=== PATIENT | female | born 1990 | race Caucasian/White ===

== ENCOUNTER 2016-07-19 07:32 | Emergency (ER) | payer SELFPAY ==
[~2016-07-19] VITALS: Ht 157.5 cm; Wt 96.0 kg
[2016-07-19] MEDS ORDERED: CHOL100046 PO (07:44)
[2016-07-19] MEDS ORDERED: GABA-529 PO (07:44)
[2016-07-19] MEDS ORDERED: SODIUM CHLORIDE 0.9% 1,000 ML IV ONE (08:41)
[2016-07-19] MEDS ORDERED: KETOROLAC 30MG/ML VIAL IV ONE ×2 (08:45→11:30)
[2016-07-19 09:31] LABS: BASOPHILS % 0.5 % (0.0-2.0); EOSINOPHILS % 0.7 % (0.0-5.0); HEMATOCRIT. 39.4 % (36.0-48.0); MEAN CORPUSCULAR HEMOGLOBIN 29.2 pg (28.0-32.0); MEAN CORPUSCULAR HGB CONC 33.1 g/dL (31.0-37.0); MEAN CORPUSCULAR VOLUME 88.2 fL (81.0-99.0); MONOCYTES % 4.6 % (2.0-8.0); NEUTROPHILS % 63.2 % (40.0-76.0); PLATELET 291 x1000/uL (130-400); RED BLOOD CELL COUNT 4.47 mill/uL (4.2-5.4); RED CELL DISTRIBUTION WIDTH 13.7 % (11.6-14.6); WHITE BLOOD COUNT 7.3 x1000/uL (4.5-11.0)
[2016-07-19 09:37] LABS: CHLORIDE 108 mEq/L (98-107); INDEX HEMOLYSI 1 (1-3); INDEX ICTERIC 1 (1-4); INDEX LIPEMIC 1 (1-3)
[2016-07-19 09:42] LABS: HCG SCREEN NEGATIVE
[2016-07-19 09:45] LABS: ALANINE AMINOTRANSFERASE 31 IU/L (13-61); ALBUMIN 3.5 g/dL (3.4-5.0); ANION GAP 11; CALCIUM 9.1 mg/dL (8.5-10.1); CARBON DIOXIDE 31 mEq/L (21-32); UREA NITROGEN BLOOD 13 mg/dL (7-21); eGFR > 60 mL/min (>60)
[2016-07-19 10:00] VITALS: BP 117/74
== END 2016-07-19 12:10 | disposition home or self-care (01) ==
LOC: ER 08:54
DX: M54.2 Cervicalgia (principal); R19.7 Diarrhea, unspecified; E86.0 Dehydration; G35 Multiple sclerosis; Z88.0 Allergy status to penicillin; E87.0 Hyperosmolality and hypernatremia
CPT/HCPCS: 36415; 80053; 84703; 85025; 96361; 96374; 99284; J1885; J7030; Z7610

== ENCOUNTER 2016-09-26 13:36 | Emergency (ER) | payer SELFPAY ==
[~2016-09-26] VITALS: Ht 157.5 cm; Wt 86.0 kg
[~2016-09-26 13:36] MED LIST: CHOL100046 PO; GABA-529 PO
[2016-09-26 13:41] VITALS: BP 102/81
== END 2016-09-26 17:43 | disposition left against medical advice (07) ==
LOC: ER 17:30
DX: Z53.21 Procedure and treatment not carried out due to patient leaving prior to being seen by health care provider (principal)

== ENCOUNTER 2016-10-05 12:05 | Emergency (ER) | payer SELFPAY ==
[~2016-10-05] VITALS: Ht 160 cm; Wt 84.0 kg
[2016-10-05] MEDS ORDERED: ONDANSETRON HCL 4MG/2ML VIAL IV STA (15:36)
[2016-10-05] MEDS ORDERED: MORPHINE SULFATE 4 MG/ML CPJ (NOT FOR IM USE) IV STA (15:36)
[2016-10-05] MEDS ORDERED: SODIUM CHLORIDE 0.9% 1,000 ML IV ONE (15:36)
[2016-10-05 15:57] LABS: BASOPHILS % 0.4 % (0.0-2.0); EOSINOPHILS % 3.1 % (0.0-5.0); HEMATOCRIT. 37.3 % (36.0-48.0); HEMOGLOBIN. 12.7 g/dL (12.0-16.0); LYMPHOCYTES % 35.3 % (20.0-50.0); MEAN CORPUSCULAR HEMOGLOBIN 29.5 pg (28.0-32.0); MEAN CORPUSCULAR VOLUME 86.8 fL (81.0-99.0); MEAN PLATELET VOLUME 7.1 fl (7.4-10.4); MONOCYTES % 5.8 % (2.0-8.0); NEUTROPHILS % 55.4 % (40.0-76.0); PLATELET 264 x1000/uL (130-400); RED CELL DISTRIBUTION WIDTH 13.8 % (11.6-14.6)
[2016-10-05 16:02] LABS: PROTHROMBIN TIME 10.1 sec
[2016-10-05 16:09] LABS: CARBON DIOXIDE 26 mEq/L (21-32); CHLORIDE 110 mEq/L (98-107)
[2016-10-05 16:11] LABS: HCG SCREEN NEGATIVE
[2016-10-05 16:51] LABS: CLARITY URINE CLOUDY (CLEAR); COLOR URINE YELLOW (YELLOW); GLUCOSE URINE NEGATIVE (NEGATIVE); KETONES URINE NEGATIVE (NEGATIVE); LEUKOCYTE ESTERASE URINE 1+ (NEGATIVE); NITRITE URINE NEGATIVE (NEGATIVE); OCCULT BLOOD URINE NEGATIVE (NEGATIVE); PROTEIN URINE TRACE (NEGATIVE); SPECIFIC GRAVITY URINE 1.031 (1.005-1.030)
[2016-10-05] MEDS ORDERED: KETOROLAC 30MG/ML VIAL IV ONE (19:15)
[2016-10-05] MEDS ORDERED: CEFTRIAXONE SODIUM 250 MG/VIAL IM ONE (19:45)
[2016-10-05] MEDS ORDERED: AZITHROMYCIN 500 MG TABLET PO ONE (20:15)
[2016-10-05] MEDS ORDERED: CEFTRIAXONE SODIUM 250 MG/VIAL IV ONE (20:30)
[2016-10-05] MEDS ORDERED: CEFTRIAXONE 1 G PREMIX 50 ML IV NR (21:00)
[2016-10-05] MEDS ORDERED: ACETAMINOPHEN 325MG TABLET PO ONE (21:15)
[2016-10-05] MEDS ORDERED: LIDOCAINE HCL 1% 20ML VIAL (Pyxis) INJ INFIL ONE (21:45)
[2016-10-06] MEDS ORDERED: MORPHINE SULFATE 4 MG/ML CPJ (NOT FOR IM USE) IV ONE
[2016-10-06 00:20] VITALS: BP 105/62
[2016-10-10 08:16] LABS: CHLAMYDIA TRACHOMATIS NAA Negative (Negative); NEISSERIA GONORRHOEAE NAA Negative (Negative)
== END 2016-10-06 00:26 | disposition home or self-care (01) ==
LOC: ER 15:28
DX: N73.9 Female pelvic inflammatory disease, unspecified (principal); N39.0 Urinary tract infection, site not specified; N76.0 Acute vaginitis; Z88.0 Allergy status to penicillin
CPT/HCPCS: 36415; 70450; 76830; 76856; 80053; 81001; 83690; 84703; 85025; 85610; 87210; 87491; 87591; 96361; 96374; 96375; 96376; 99285; J0696; J1885; J2270; J2405; J3490; J7030; Z7610

== ENCOUNTER 2016-11-16 17:43 | Emergency (ER) | payer SELFPAY ==
[~2016-11-16] VITALS: Ht 162.6 cm; Wt 91.0 kg
[2016-11-16 17:47] VITALS: BP 102/62
== END 2016-11-16 22:08 | disposition left against medical advice (07) ==
LOC: ER 21:10
DX: R50.9 Fever, unspecified (principal); Z53.21 Procedure and treatment not carried out due to patient leaving prior to being seen by health care provider